=== PATIENT | female | born 1940 | race African-American/Black ===

== ENCOUNTER 2021-06-08 22:42 | Emergency (ER) | payer MEDICARE ==
[~2021-06-08] VITALS: Ht 165.1 cm; Wt 68.0 kg
[2021-06-08] MEDS ORDERED: NITROGLYCERIN 0.4MG TABLET SL SL PRN (23:15)
[2021-06-08] MEDS ORDERED: ASPIRIN 81MG TABLET PO ONE (23:15)
[2021-06-09 01:45] LABS: CHLORIDE 109 mEq/L (98-107)
[2021-06-09 02:19] LABS: BASOPHILS % 0.5 % (0.0-2.0); EOSINOPHILS % 2.4 % (0.0-5.0); HEMATOCRIT. 41.5 % (36.0-48.0); HEMOGLOBIN. 13.8 g/dL (12.0-16.0); LYMPHOCYTES % 31.7 % (20.0-50.0); MEAN CORPUSCULAR HEMOGLOBIN 27.6 pg (28.0-32.0); MEAN CORPUSCULAR VOLUME 82.8 fL (81.0-99.0); MEAN PLATELET VOLUME 10.2 fl (7.4-10.4); MONOCYTES % 10.3 % (2.0-8.0); NEUTROPHILS % 55.1 % (40.0-76.0); PLATELET 160 x1000/uL (130-400); RED BLOOD CELL COUNT 5.01 mill/uL (4.2-5.4); RED CELL DISTRIBUTION WIDTH 14.3 % (11.6-14.6)
[2021-06-09] MEDS ORDERED: ASPIRIN 81MG TABLET PO SCH (03:15)
[2021-06-09 03:30] VITALS: BP 177/83
== END 2021-06-09 04:00 | disposition left against medical advice (07) ==
LOC: ER 22:42 → EDBEDREQTM 06-09 03:03 → EDBEDREQ 06-09 03:03 → ER 06-09 04:00 → CANBEDREQ 06-09 18:59
DX: R07.89 Other chest pain (principal); R06.02 Shortness of breath; Z90.710 Acquired absence of both cervix and uterus; Z20.822 Contact with and (suspected) exposure to COVID-19
CPT/HCPCS: 36415; 71045; 80053; 83880; 84484; 85025; 87426; 93005; 99285

== ENCOUNTER 2023-05-11 03:51 | Emergency (ER) | payer MEDICARE ==
[~2023-05-11] VITALS: Ht 165.1 cm; Wt 61.0 kg
[~2023-05-11 03:51] MED LIST: ALEN70TA79 PO; AMLO10TA80 PO; ASCO500C15 MT; ASPI-1497 PO; CHOL200074 PO; EZET10TA81 PO; FISH1CAP34 PO; LOSA-413 PO; METO-385 PO; MIRT-89 PO; MULT-1146 MT; OMEP20CA14 PO
[2023-05-11 04:00] VITALS: O2SAT 99
[2023-05-11 04:40] LABS: CLARITY URINE CLOUDY (CLEAR); COLOR URINE YELLOW (YELLOW); GLUCOSE URINE NEGATIVE (NEGATIVE); KETONES URINE NEGATIVE (NEGATIVE); LEUKOCYTE ESTERASE URINE TRACE (NEGATIVE); NITRITE URINE NEGATIVE (NEGATIVE); OCCULT BLOOD URINE TRACE (NEGATIVE); PROTEIN URINE NEGATIVE (NEGATIVE); SPECIFIC GRAVITY URINE 1.008 (1.005-1.030); UROBILINOGEN URINE 0.2 E.U./dL (0.2-1.0)
[2023-05-11 04:53] LABS: BASOPHILS % 0.9 % (0.0-2.0); EOSINOPHILS % 4.9 % (0.0-5.0); HEMATOCRIT. 39.6 % (36.0-48.0); HEMOGLOBIN. 12.8 g/dL (12.0-16.0); LYMPHOCYTES % 44.5 % (20.0-50.0); MEAN CORPUSCULAR HEMOGLOBIN 27.3 pg (28.0-32.0); MEAN CORPUSCULAR HGB CONC 32.3 g/dL (31.0-37.0); MEAN CORPUSCULAR VOLUME 84.3 fL (81.0-99.0); MEAN PLATELET VOLUME 9.6 fl (7.4-10.4); MONOCYTES % 11.3 % (2.0-8.0); NEUTROPHILS % 38.4 % (40.0-76.0); PLATELET 140 x1000/uL (130-400); RED CELL DISTRIBUTION WIDTH 13.6 % (11.6-14.6); WHITE BLOOD COUNT 3.8 x1000/uL (4.5-11.0)
[2023-05-11 05:08] LABS: ALANINE AMINOTRANSFERASE 19 IU/L (10-49); ALBUMIN 4.1 g/dL (3.2-4.8); ASPARTATE AMINOTRANSFERASE 22 IU/L (<34); BILIRUBIN TOTAL 0.6 mg/dL (0.1-1.0); CALCIUM 9.7 mg/dL (8.7-10.4); CARBON DIOXIDE 30 mEq/L (21-32); CHLORIDE 108 mEq/L (98-107); CREATININE 0.6 mg/dL (0.6-1.0); GLUCOSE 94 mg/dL (70-105); POTASSIUM 3.9 mEq/L (3.5-5.1); PROTEIN TOTAL 6.7 g/dL (6.0-8.3); SODIUM 144 mEq/L (136-145); UREA NITROGEN BLOOD 9 mg/dL (9-23)
[2023-05-11 05:21] LABS: RBC URINE NONE SEEN /hpf (0-2); SQUAMOUS EPITHELIAL CELL URINE FEW /lpf (RARE/1+); WBC URINE NONE SEEN /hpf (0-2)
[2023-05-11 05:22] LABS: BACTERIA URINE NONE SEEN
[2023-05-11 06:55] VITALS: TEMP 98.2
[2023-05-11] MEDS ORDERED: ONDANSETRON 4MG ODT PO ONE (07:00)
[2023-05-11] MEDS ORDERED: ACETAMINOPHEN 325MG TABLET PO ONE (07:00)
[2023-05-11 09:49] VITALS: BP 154/71; PULSE 54; RESP 15
== END 2023-05-11 09:50 | disposition home or self-care (01) ==
LOC: ER 03:51
DX: I10 Essential (primary) hypertension (principal); E78.00 Pure hypercholesterolemia, unspecified; Z79.899 Other long term (current) drug therapy; Z98.890 Other specified postprocedural states
CPT/HCPCS: 99285; 70450; 80053; 81003; 85025; 36415; 93005; Q0162

== ENCOUNTER 2025-05-12 08:37 | Emergency (ER) | payer MEDICARE ==
[~2025-05-12] VITALS: Ht 170.2 cm; Wt 76.0 kg
[~2025-05-12 08:37] MED LIST changes: -AMLO10TA80 PO; +ASCO500C14 MT; -ASCO500C15 MT; +ATOR20TA65 MT
[2025-05-12 08:38] VITALS: PULSE 80; RESP 14; O2SAT 100
[2025-05-12 08:49] VITALS: BP 185/81; TEMP 36.8; O2SAT 100
[2025-05-12] MEDS ORDERED: P20 PO (09:03)
[2025-05-12] MEDS: PREDNISONE 20MG TABLET PO ONE (09:07)
== END 2025-05-12 09:11 | disposition home or self-care (01) ==
LOC: ER 08:51
DX: L25.9 Unspecified contact dermatitis, unspecified cause (principal); I10 Essential (primary) hypertension; E78.00 Pure hypercholesterolemia, unspecified; Z79.899 Other long term (current) drug therapy; Z90.710 Acquired absence of both cervix and uterus
CPT/HCPCS: 99283; J7512